=== PATIENT | female | born 1970 | race Caucasian/White ===

== ENCOUNTER 2023-03-25 08:10 | Outpatient (CLI) | payer BC, SELFPAY | END 2023-03-25 08:11 | disposition home or self-care (01) | LOC: NFLDREF 03-28 06:50 | PROVIDERS: PCP Family Medicine; Referring Provider Family Medicine; Visit Provider Family Medicine | DX: Z13.6 Encounter for screening for cardiovascular disorders (principal); Z13.1 Encounter for screening for diabetes mellitus | CPT/HCPCS: 80061; 82947 ==

== ENCOUNTER 2024-02-13 11:51 | Outpatient (CLI) | payer BC, SELFPAY ==
--- OUTSIDE RECORDS SUMMARY | 2024-02-13 11:55 | XMS_ITS | Clinical Summary ---
Author Organization [facility] Address [place], [place] [address] Care Team Providers Care Housing Relocation Name Role Phone Chanel Grigsby Neal Unavailable [phone] Lenka Porter Unavailable Unavailable Jumana Mccarthy MD Unavailable [phone] Pcp, No Primary Care Provider Unavailabl e Allergies No known active allergies Medications Medication Sig Dispensed Refills Start Date End Date Status ibuprofen (ADVIL; MOTRIN) 600 mg tablet Take 1 tablet by mouth 3 times daily with meals. Maximum of 3200 mg in 24 hours. 60 tablet 3 10/18/2010 Active busPIRone (BUSPAR) 30 mg tabletIndications:Post traumatic stress disorder Take 1 tablet by mouth 2 times daily. 180 tablet 3 01/18/2020 Active cyclobenzaprine (FLEXERIL) 10 mg tabletIndications:Dege neration of lumbar or lumbosacral intervertebral disc Take 1 tablet by mouth 3 times daily if needed for Muscle Spasm. 90 tablet 1 01/18/2020 Active ondansetron (ZOFRAN ODT) 4 mg disintegrating tabletIndications:Naus ea and vomiting, intractability of vomiting not specified, unspecified vomiting type DISSOLVE 1 TABLET ON THE TONGUE EVERY 8 HOURS NEEDED FOR NAUSEA OR VOMITING 15 tablet 11 01/18/2020 Active varenicline (CHANTIX) 1 mg tabletIndications:Smok ing trying to quit Take 1 mg by mouth 2 times daily with meals. 180 Tablet 11/03/2020 Active escitalopram oxalate (LEXAPRO) 20 mg tabletIndications:Anxi ety Take 1 Tablet (20 mg) by mouth every morning. 90 Tablet 1 11/03/2020 Active LORazepam (ATIVAN) 0.5 mg tabIndications:Posttra umatic stress disorder TAKE 1 TABLET BY MOUTH EVERY 6 HOURS NEEDED FOR ANXIETY 12 Tablet 01/10/2021 Active simvastatin (ZOCOR) 40 mg tabletIndications:Hype rlipidemia, unspecified hyperlipidemia type TAKE 1 TABLET BY MOUTH AT BEDTIME 90 Tablet 1 02/12/2021 Active Active Problems Problem Noted Date Diagnosed Date Routine adult health maintenance 03/18/2015 Overview: Colonoscopy 03/2015 normal repeat in 10 years Right shoulder s/p arthrosco pic anterior labral repair with capsulorrhaphy with plication of the posterior inferior glenohumeral ligament 05/18/13 05/26/2013 Overview: Right shoulder s/p arthroscopic anterior labral repair with capsulorrhaphy with plication of the posterior inferior glenohumeral ligament 05/18/13 right shoulder pain 03/20/2013 Instability of right shoulder joint 03/20/2013 Aggravation of Lumbar DDD 09/20/2010 Right knee partial ACL injury 09/20/2010 Posttraumatic stress disorder 04/03/2010 Other and unspecified hyperlipidemia 04/08/2009 Smoking 04/08/2009 Esophageal reflux 08/31/2006 Overview: EGD 10/2015 normal Immunizations Name Administration Dates Next Due AMB Influenza, IIV3 (Age >=3 years)(Flu Clinic Only) 03/30/2011 AMB Influenza, IIV4 PF (=>6 mos Flulaval,Fluzone Fluarix)(Flu Clinic Only) 03/23/2020,06/07/2014 COVID-19 vaccine (ITS KOOL NTMommy Nearest 30mcg/0.3mL) PF, MDV 07/19/2020,06/28/2020 Influenza Virus, Unspecified 05/17/2003 Influenza, IIV3 (Age 6-35 mos) 03/30/2011 Influenza, IIV3 (Age >=3 years) 04/27/20 13,07/01/2012,03/10/2009,2007,06/25/2007,04/19/2006 Influenza, IIV4 07/31/2017, 7,08/08/2015,2013 Influenza,LAIV4 Live Intrana rosalina (Flumist) 04/04/2010,03/18/2009 Td (Age >=7 Years) 08/17/2020 Tdap 04/08/2009 Tuberculin (PPD) 05/27/2009 Zoster (Shingrix-RZV, recombinant) 08/17/2020 Family History Medical History Relation Name Comments Heart Disease Mother CHF, atrial fi b Cancer-breast No Family History Relation Name Status Comments Mother Social History Tobacco Use Types Packs/Day Years Used Date Smoking Tobacco: Former Cigarettes 1 30 Smokeless Tobacco: Never Tobacco Cessation:Counseling Given: Yes Alcohol Use Standard Drinks/Week Comments Yes 0 (1 standard drink = 0.6 oz pur e alcohol) BEER 2-2 TIMES A MONTH PHQ-2 Answer Date Recorded PHQ-2 TOTAL SCORE 2 11/03/2020 Social Connections Answer Date Recorded Frequency of Communication with Friends and Fami ly Not on file 06/10/2021 Financial Resource Strain Answer Date R ecorded Difficulty of Paying Living Expenses Not on file 06/10/2021 Difficulty of Paying Living Expenses Not on file 06/10/2021 Sex and Gender Information Value Date Recorded Sex Assigned at Not on file Gender Identity Not on file Sexual Orientation Not on file Obstetrics History Last Filed Vital Signs Vital Sign Reading Time Taken Comments Blood Pressure 115/82 11/03/2020 8:35 AM CDT Pulse 82 11/03/2020 8:35 AM CDT Temperature 36.7 ??C (98 ??F) 01/25/2017 2:44 PM CDT Respiratory Rate 16 02/05/2017 10:02 AM CDT Oxygen Saturation 97% 11/03/2020 8:35 AM CDT Inhaled Oxygen Concentration - - Weight 74.4 kg (164 lb) 08/17/2020 9:08 AM [facility] Height 163.2 cm (5' 4.25) 08/17/2020 9:08 AM CS T Body Mass Index 27.93 08/17/2020 9:08 AM [facility] Plan of Treatment Health Maintenance Due Date Last Done Comments HIV for age 15-65 1983 Hepatitis C screening for age 18-79 1986 Mammogram for age 45-75 10/29/2019 10/29/19 19, 07/31/2017, 08/08/2015, Additional history exists Zoster (shingles) series for age 50+ (2 of 2) 10/12/2020 08/17/2020 BMI (ht and wt on same day) for age 18+ 08/17/2021 08/17/2020, 12/04/2018, 07/31/2017, Additional history exists Depression screening for age 12+ 11/03/2021 11/03/2020, 08/17/2020, 01/18/2020, Additional history exists COVID-19 vaccine series ( season) 2024 07/19/2020, 06/28/2020 Influenza for age 50-64 02/09/2024 03/23/20 20, 07/31/2017, 08/09/2016, Additional history exists Colonoscopy through age 75 03/18/2025 03/18/2015 Lipids for age 45-75 08/17/2025 08/17/2020, 07/31/2017, 07/24/2016, Additional history exists Pap test for age 21-65 08/17/2025 , 08/17/2020, 07/31/2017, Additional history exists Tetanus booster 08/17/2030 08/17/2020, 04/08/2009 Tdap Completed 04/08/2009 Pneumococcal series for age 6-64 Aged Out No longer eligible based on patient's age to complete this topic Medical Devices Implanted Type Area Compliance Nurse Device Identifier Shelf Expiration Date Model / Serial / Lot Ancr Soft Tissue 1.8mm Y-Knot Flex - [id number] Implanted:Qty: 1 on 05/18/2013 at [facility] Right: Shoulder [employer] ([employer]) Y-1802# / / [id number] Ancr Soft Tissue 1.8mm Y-Knot Flex - [id number] Implanted:Qty: 1 on 05/18/2013 at [facility] Right: Shoulder [employer] ([employer]) Y-1802# / / [id number] Ancr Soft Tissue 1.8mm Y-Knot Flex - [id number] Implanted:Qty: 1 on 05/18/2013 at [facility] Right: Shoulder [employer] ([employer]) Y-[id number]# / / [id number] Procedures Procedure Name Priority Date/Time Associated Diagnosis Comments LIPID PANEL W REFLEX MEASURED LDL Routine 08/17/2020 10:02 AM [facility] Lipid screening CELLAR PUMPER THIN PREP PAP SCREEN IMAGED Routine 08/17/2020 9:45 AM [facility] Screening for cervical cancer XR MAMMO BILAT SCREENING Routine 10/28/2018 9:20 AM CDT Visit for screening mammogram from Last 3 Months or Most Recently Relevant to Health Maintenance Results * LIPID PANEL W REFLEX MEASURED LDL (08/17/2020 10:02 AM [facility]) CHOLESTEROL,TOTAL 182 100 - 199 mg/dL 08/17/2020 6:08 PM [facility] TRIGLYCERIDES 117 <150 mg/dL 08/17/2020 6:08 PM [facility]ERT [facility] HDL CHOLESTEROL 41 >40 mg/dL 6:08 PM [facility] NON-HDL CHOLESTEROL 141 <145 mg/dl 08/17/2020 6:08 PM [facility] CHOL/HDL RATIO 4.44 <4.50 08/17/2020 6:08 PM [facility] LDL CHOLESTEROL 118 <=130 mg/dL 08/17/2020 6:08 PM [facility] PROVIDER ORDERED STATUS RANDOM 08/17/2020 6:08 PM [facility] Blood BLOOD SPECIMEN / Unknown Venipuncture / Unknown 08/17/2020 10:02 AM [facility] 08/17/2020 10:02 AM [facility] Birgit Hinson MD CHEMISTRY [facility] [address] [place] [address], [place] * CELLAR PUMPER THIN PREP PAP SCREEN IMAGED [[id number]] (08/17/2020 9:45 AM [facility]) Case Report Gynecologic Cytology Report ? Case: [id number] ? Authorizing Provider: ??Birgit Hinson MD ? Collected: ? 08/17/2020 0945 ? Ordering Location: ? [facility] ?? Received: ?08/17/2020 1139 ? Clinic ? First Screen: ?Carina Bauman ? Specimen: ?CELLAR PUMPER ThinPrep Vial Screening, Cervical ? 08/25/2020 12:20 PM CDT [facility] INTERPRETATION/ RESULT NEGATIVE FOR INTRAEPITHELIAL LESION OR MALIGNANCY (NIL) (none) 08/25/2020 12:20 PM CDT [facility] IMEN ADEQUACY Satisfactory for evaluation Endocervical component present 08/25/2020 12:20 PM CDT [facility] HPV REQUEST HPV and PAP 08/25/2020 12:20 PM CDT [facility] Date of LMP ablation 08/25/2020 12:20 PM CDT [facility] Last Pap Date 07/31/17 08/25/2020 12:20 PM CDT [facility] Last Pap Result NIL 12:20 PM CDT [facility] Abnormal Pap or Francitas Bx in last 5 years No 08/25/2020 12:20 PM CDT [facility] Menstrual Status Ablation 08/25/2020 12:20 PM CDT [facility] Francitas Bx Done Today No 08/25/2020 12:20 PM CDT [facility] Additional Information None given 08/25/2020 12:20 PM CDT [facility] Comment: Cytology is screened at [facility] - [address] [address] and [facility] - [address] [place] [address] and [facility] - [address] [place] [address] Interpreted at [facility] - [address], [place] [address] Automated Review Successful 08/25/2020 12:20 PM CDT [facility] Comment:Specimen processed s uccessfully by automated multiple punch press operator device, ThinPrep Imaging System, [employer] ANCILLARY TESTING CELLAR PUMPER HPV Ordered, Please see separate report 08/25/2020 12:20 PM CDT [facility] Note The pap test is a screening technique, not a diagnostic procedure. It is used primarily to screen for squamous cancers and precursor lesions. Published studies have shown that it is subject to both false negative and false positive results. The pap test should not be used as the sole means to diagnose or exclude pre-malignant and malignant lesions. 08/25/2020 12:20 PM CDT [facility] Other (Cervical) Non-Blood / Unknown 08/17/2020 9:45 AM [facility] 08/17/2020 11:39 AM [facility] Birgit Hinson MD PATHOLOGY/CYTOLOGY [facility] [address] [place] [address], [place] * XR MAMMO BILAT SCREENING (10/28/2018 9:20 AM CDT) Anatomical Region Laterality Modality BREASTS, Breast Left, Breast Right Bilateral Mammography Impressions 10/28/2018 12:28 PM CDT ??There is no radiographic evidence for malignancy. ??Recommend annual mammograms. A lay language report of this examination will be provided to the patient. MAMMOGRAM ASSESSMENT: ??ACR 2 Benign Narrative 10/28/2018 12:28 PM CDT XR MAMMO BILAT SCREENING [[id number]] CLINICAL HISTORY: ??This is an asymptomatic 48 y.o. patient. INDICATION FOR EXAM: Mammogram Screening. TECHNIQUE: CC & MLO views were obtained. ??This digital study was evaluated with the assistance of Computer-Aided Detection. COMPARISON FILMS: Yes 07/31/17 [facility] 08/08/15 [facility] FINDINGS: ??Mammographically, the breast tissue is heterogeneously dense. ?? No suspicious masses or microcalcifications. ??Benign appearing mass(es) within right breast. Birgit Hinson MD MAMMO from Last 3 Months or Most Recently Relevant to Health Maintenance Advance Directives * Full Code (Latest Code Status on File) Date Activated Date Inactivated Comments 05/18/2013 6:47 PM 05/19/2013 12:32 AM * Full Code Date Activated Date Inactivated Comments 05/18/2013 12:28 PM 05/18/2013 6:47 PM Care Teams Housing Relocation Relationship Specialty Start Date End Date Pcp, No . PCP - General 02/18/21 Chanel Grigsby AuD Audiology 12/03/11 Lenka Porter Neurology Neurology 12/03/11 Jumana Mccarthy MD [address] [facility] [address] [place] [address] Rheumatology Rheumatology 02/05/17
[2024-02-13 12:54] LABS: Free T4 Free Thyroxine* 0.97 ng/dL (0.70-1.85); Vitamin D 25 Hydroxy* 18 ng/mL (30-80)
== END 2024-02-13 11:52 | disposition home or self-care (01) ==
PROVIDERS: PCP Family Medicine; Visit Provider Psychiatry & Neurology Psychiatry
DX: F33.1 Major depressive disorder, recurrent, moderate (principal)
CPT/HCPCS: 36415; 82306; 84439; 84443